=== PATIENT | female | born 1965 | race Caucasian/White ===

== ENCOUNTER 2017-01-06 18:43 | Emergency (ER) | payer OTHER ==
[~2017-01-06] VITALS: Ht 160 cm; Wt 59.0 kg
--- NOTE | ~2017-01-06 | EKG ---
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
[2017-01-06] MEDS ORDERED: MOBIC15 MG PO (19:15)
[2017-01-06] MEDS ORDERED: DIOVAN 80 MG TA80 M1 PO (19:15)
[2017-01-06] MEDS ORDERED: FLONASE 0.05%50 MCG NASAL (19:16)
[2017-01-06 19:27] LABS: ABSOLUTE NEUTROPHILS 7.9 thou/uL (1.4-8.2); BASOPHILS 0.8 % (0.0-2.0); EOSINOPHILS 1.9 % (0.0-3.0); HEMATOCRIT 43.3 % (37.0-47.0); LYMPHOCYTES 32.6 % (24.0-44.0); MANUAL DIFF NO; MCH 32.2 pg (26.0-34.0); MCHC 34.6 g/dL (28.0-37.0); MCV 93.1 fL (80.0-100.0); MONOCYTES 3.6 % (1.0-8.0); PLATELET COUNT 222 thou/uL (150-400); POLYS 61.1 % (36.0-66.0); RBC 4.65 mil/uL (4.20-5.00); RDW 12.8 % (10.5-14.5); WBC 12.8 thou/uL (4.0-11.0)
[2017-01-06 19:59] LABS: ANION GAP 12 mmol/L (7-16); BUN 18 mg/dL (7-18); CALCIUM 9.7 mg/dL (8.5-10.1); CHLORIDE 99 mmol/L (98-107); CO2 25 mmol/L (21-32); CREATININE 0.9 mg/dL (0.6-1.0); GLUCOSE 134 mg/dL (74-106); POTASSIUM 3.4 mmol/L (3.5-5.1); SODIUM 136 mmol/L (136-145)
[2017-01-06 20:07] LABS: TROPONIN-I < 0.04 ng/mL (<0.04-0.07)
[2017-01-06 20:47] VITALS: BP 117/81
== END 2017-01-06 20:17 | disposition home or self-care (01) ==
LOC: ER 18:43
PROVIDERS: Emergency Medicine
DX: R07.89 Other chest pain (principal); I10 Essential (primary) hypertension; Z87.19 Personal history of other diseases of the digestive system; F17.210 Nicotine dependence, cigarettes, uncomplicated; F10.99 Alcohol use, unspecified with unspecified alcohol-induced disorder; Z88.1 Allergy status to other antibiotic agents